=== PATIENT | male | born 2000 | race African-American/Black ===

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

== ENCOUNTER 2020-03-01 14:00 | Emergency (ER) | payer OTHER ==
[~2020-03-01 14:00] MED LIST: METOCLOPRAMIDE INJ 10MG/2ML VIAL (J2765 PER 1) ONE; PEPC1TAB5 PO; diphenhydrAMINE 50MG/ML VIAL (J1200) ONE
[2020-03-01] MEDS ORDERED: METOCLOPRAMIDE INJ 10MG/2ML VIAL (J2765 PER 1) As Ordered ONE (14:03)
[2020-03-01] MEDS ORDERED: diphenhydrAMINE 50MG/ML VIAL (J1200) As Ordered ONE (14:03)
[2020-03-28 19:55] LABS: HEMOGLOBIN 15.4 g/dl (13.5-17.5); MEAN CORPUSCULAR HEMOGLOBIN 31.1 pg (27.0-33.0); MEAN CORPUSCULAR HGB CONC 35.8 g/dl (32.0-36.5); MEAN CORPUSCULAR VOLUME 86.9 fl (80.0-96.0); PLATELET COUNT, AUTOMATED 216 10^3/uL (150-450); RED BLOOD COUNT 4.95 10^6/uL (4.30-6.10); WHITE BLOOD COUNT 5.3 10^3/uL (4.0-10.0)
[2020-04-20 14:14] LABS: BLOOD UREA NITROGEN 10 MG/DL (7-18); CALCIUM LEVEL 9.8 MG/DL (8.5-10.1); CARBON DIOXIDE LEVEL 30 MEQ/L (21-32); CHLORIDE LEVEL 104 MEQ/L (98-107); CREATININE FOR GFR 1.05 MG/DL (0.70-1.30); GLUCOSE, FASTING 81 MG/DL (70-100); MAGNESIUM LEVEL 2.1 MG/DL (1.4-2.0); SODIUM LEVEL 138 MEQ/L (136-145)
== END 2020-03-01 15:42 | disposition home or self-care (01) ==
LOC: M ED 14:00
DX: R51 Headache (principal)
CPT/HCPCS: 70450; 80048; 83735; 85027; 96361; 96374; 96375; 99283; J1200; J2765